=== PATIENT | male | born 2000 | race Caucasian/White ===

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

== ENCOUNTER 2020-06-29 08:56 | Outpatient (CLI) | payer OTHER ==
[2020-06-29] MEDS ORDERED: ALBUTEROL 1 PUFF INH STA (09:52)
== END 2020-06-29 08:57 | disposition home or self-care (01) ==
LOC: RT 08:56
PROVIDERS: ATTEND Physician Assistant
DX: Z87.09 Personal history of other diseases of the respiratory system (principal)
CPT/HCPCS: 94060

== ENCOUNTER 2023-03-17 21:33 | Emergency (ER) | payer OTHER ==
--- NOTE | 2023-03-17 22:42 | ED Physician Documentation ---
PD HPI SKIN - Stated complaint Stated Complaint: ALLERGIC REACTION - Chief complaint Chief Complaint: Wound - History obtained from History obtained from: Patient - Additional information Additional information: HPI from patient. 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 This evening patient ate pesto which he subsequently was told had walnuts in it. He subsequently developed pruritic rash/hives on trunk and BUE; onset approximately 19:00. 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 Patient denies dyspnea, denies chest/throat tightness/constriction, denies oropharyngeal swelling including lips and tongue, and denies lightheadedness. Review of Systems Respiratory: denies: Dyspnea, Cough, Wheezing GI: denies: Abdominal Pain, Nausea, Vomiting PD PAST MEDICAL HISTORY - Past Medical History Past Medical History: No Cardiovascular: None Respiratory: None Neuro: None Endocrine/Autoimmune: None GI: None : None HEENT: None Psych: None Musculoskeletal: None Derm: None - Past Surgical History Past Surgical History: No - Present Medications Home Medications: Ambulatory Orders Medication Instructions Recorded Confirmed Albuterol 2.5 mg INH Q4H PRN 12/31/18 12/31/18 Bacitracin Zinc Oint 1 applic TOP BID #1 tube 12/31/18 Steroid Inhaler 12/31/18 predniSONE [Deltasone] 40 mg PO DAILY 2 Days #4 tablet 03/17/23 - Allergies Allergies/Adverse Reactions: Allergies Allergy/AdvReac Type Severity Reaction Status Date / Time amoxicillin Allergy Unknown Verified 03/17/23 21:51 egg Allergy Anaphylaxis Verified 03/17/23 21:51 peanut Allergy Anaphylaxis Verified 03/17/23 21:51 - Social History Does the pt smoke?: No Smoking Status: Never smoker Does the pt drink ETOH?: No Does the pt have substance abuse?: No - Immunizations Immunizations are current?: Yes - POLST Patient has POLST: No PD ED PE NORMAL - Vitals Vital signs reviewed: Yes - General General: Alert and oriented X 3, No acute distress, Well developed/nourished - HEENT HEENT: Moist mucous membranes, Pharynx benign (no sweling of lips, tongue, posterior o/p) - Respiratory Respiratory: No respiratory distress, Clear bilaterally PD ED PE EXPANDED - Derm Derm: Urticaria (scattered urticaria on BUE, abdomen) Results - Vitals Vitals: Oxygen O2 Source Room air PD Medical Decision Making - ED course Complexity details: considered differential, d/w patient ED course: Patient says he feels that the hives are improving by the time of this H+P, and he has scattered urticaria on BUE and abdomen without and significant confluence and no findings s/o anaphylaxis (lungs CTA bilaterally, normal BP, no oropharyngeal swelling). He is given 40mg PO prednisone and prescription for 40mg Prednisone QD for another 2 days is electronically submitted to [facility] pharmacy in [place]. Departure - Departure Disposition: Home, Self Care Clinical Impression: Allergic reaction Qualifiers: Encounter type: initial encounter Qualified Code(s): T78.40XA - Allergy, unspecified, initial encounter Condition: Good Instructions: ED Drug React Allergic Prescriptions: predniSONE [Deltasone] 40 mg PO DAILY 2 Days #4 tablet Comments: Continue to use the Benadryl as per label instructions; the dose you should be taking is 1 to 2 tablets (25 mg/tab.) every 6 hours by mouth as needed for allergic reaction symptoms. You are given a dose of prednisone (steroid) in the emergency department. This should help further reduce the signs/symptoms associated with an allergic reaction. I have electronically submitted a prescription for the prednisone to the [facility] pharmacy in [place]; the prescription is for the same dose to be taken tomorrow night and the night after (total of 3 days). Forms: PCP List Discharge Date/Time: 03/17/23 23:21
[2023-03-17] MEDS ORDERED: predniSONE 20 MG TABLET PO STA (23:09)
[2023-03-17 23:27] VITALS: BP 120/77; O2SAT 100
== END 2023-03-17 23:21 | disposition home or self-care (01) ==
LOC: ED 21:33
DX: T78.40XA Allergy, unspecified, initial encounter (principal); L50.9 Urticaria, unspecified
CPT/HCPCS: 99282; 99283; J7512